=== PATIENT | male | born 1980 | race Caucasian/White ===

== ENCOUNTER 2021-01-21 11:24 | Outpatient (CLI) | payer BC, SELFPAY ==
--- NOTE | ~2021-01-21 | MR_ITS ---
EXAMINATION: MR pituitary wo/w con EXAM DATE: 01/21/2021 12:55 INDICATION: Abn Levels Of Hormones In Specimens From Other Organs. TECHNIQUE: Magnetic resonance imaging (MRI) of the brain/brain stem obtained without contrast. Sagit amairani T1, axial diffusion, gradient echo (T2*), T1, T2, FLAIR sequences obtained. Patient was then inj ected with 14 cc intravenous Multihance contrast. A pituitary protocol was utilized including dynamic imaging through the pituitary gland during intravenous injection of contrast. Axial and coronal pos tcontrast T1 weighted sequences obtained. There are no prior studies for comparison. FINDINGS: The pituitary gland is confined to the sella turcica. Suprasellar region normal in appear ance. The optic chiasm normal. Infundibulum is midline. No definite pituitary microadenoma identif ied. Please note small microadenomas can cause endocrine abnormalities but are not always identified by imaging even using dedicated pituitary protocol. This does exclude macroadenoma or need for surg ical management. There are no areas of restricted diffusion to suggest acute infarction. There is no acute hemorrhage seen on the T2*, a hemosiderin sensitive sequence. No intraparenchymal brain mass. The ventricles a re normal in size. There are no extra-axial collections. Flow voids are seen in the cerebral arteri es on the T2-weighted sequences consistent with their expected patency. The orbits are unremarkable. Soft tissue is unremarkable. There are no areas of abnormal enhancement on the postcontrast image s. IMPRESSION: Unremarkable brain/pituitary examination. Reviewed, dictated and finalized at location A.
[2021-01-21 12:07] LABS: Estimated Glomerular Filt Rate > 60
== END 2021-01-21 11:25 | disposition home or self-care (01) ==
LOC: ANHIMG 11:27
PROVIDERS: PCP Nurse Practitioner Family; Visit Provider Nurse Practitioner Family
DX: R89.1 Abnormal level of hormones in specimens from other organs, systems and tissues (principal)
CPT/HCPCS: 70553; A9577

== ENCOUNTER 2021-06-12 16:14 | Emergency (ER) | payer BC, SELFPAY ==
--- NOTE | ~2021-06-12 | XR_ITS ---
EXAMINATION: XR hand RT min 3V DATE: 06/12/2021 16:31 INDICATION: Right hand hit against a wall. TECHNIQUE: Posteroanterior, oblique and lateral views of the right hand were obtained. COMPARISON: None. 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 There is a nondisplaced subtle linear lucent extra-articular fracture at the proximal metap hyseal region of the third metacarpal. No other fractures identified. Severe osteoarthritis at the fl exed fourth proximal interphalangeal joint with remodeling at the head of the fourth proximal phalanx . IMPRESSION: 1. 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 Correlate with clinical history. 2. Nondisplaced extra articular fracture near the base of the third metacarpal. 3. 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 Reviewed, dictated and finalized at location B. LL MACHINE OPERATOR IMPRESSION: 1. 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 Correlate with clini gera history. 2. Nondisplaced extra articular fracture near the base of the third metacarpal. 3. 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
[2021-06-12 16:22] VITALS: BP 142/98; PULSE 103; RESP 16; TEMP 36.2; O2SAT 100
--- NOTE | 2021-06-12 16:49 | ED.UPPEXIN ---
HPI - Extremity Injury (Upper) General Chief Complaint: Extremity Injury, Upper Stated Complaint: rt hand injury History of Present Illness HPI narrative: This is a 40 year old male that presents to urgent care with pain to the right hand. Patient states that he banged or punched like his hand against a wall like object unintentional but it bumped and he as been having pain and he would like to have it evlauated. He has taken some Ibuprofen with not as much relief as he expected. Related Data Home Medications Medication Instructions Recorded Confirmed dextroamphetamine-amphetamine PO 06/12/21 levothyroxine 06/12/21 omeprazole 06/12/21 sildenafil 06/12/21 Allergies Allergy/AdvReac Type Severity Reaction Status Date / Time No Known Allergies Allergy Verified 10/01/13 08:53 Review of Systems Review of Systems: right hand pain All systems reviewed & are unremarkable except as noted in HPI and below PMFSH Comments At time as signature, I have reviewed and agree with nursing past medical, social, surgical and family history. Please see nursing chart for further information. There is no relevant family history pertinent to the presenting complaint. Exam Narrative: GENERAL:Well-appearing, well-nourished, and in no acute distress. HEAD:Normocephalic EYES: PERRLA and EOMI. CHEST :o respiratory distress. HEART: Regular rate and rhythm. slightly tachy ABDOMEN: Soft, nontender, nondistended, EXTREMITIES: decreased range of motion due to congential deformity third finger missing bone is in hand no fever there is slight edema. SKIN: Warm, dry, no rash. NEURO: No focal deficits. Alert and oriented x3. Course ONCOLOGY PATIENT NAVIGATOR/PA Physician Supervision COMPARISON: None. 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 There is a nondisplaced subtle linear lucent extra-articular fracture at the proximal metaphyseal region of the third metacarpal. No other fractures identified. 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 IMPRESSION: 1. 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 Correlate with clinical history. 2. Nondisplaced extra articular fracture near the base of the third metacarpal. 3. 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 Vital Signs Vital signs: Vital Signs Temperature 97.2 F L 06/12/21 16:22 Pulse Rate 103 H 06/12/21 16:22 Respiratory Rate 16 06/12/21 16:22 Blood Pressure 142/98 H 06/12/21 16:22 Pulse Oximetry 100 06/12/21 16:22 Temperature 97.2 F L 06/12/21 16:22 Pulse Rate 103 H 06/12/21 16:22 Respiratory Rate 16 06/12/21 16:22 Blood Pressure 142/98 H 06/12/21 16:22 Pulse Oximetry 100 06/12/21 16:22 Procedures Other Procedure Procedure 1: Other Procedure: Gutter splint placed on right hand MDM - Extremity Injury (Upper) Differential Diagnosis Differential diagnosis: Likely sprain and strain of wrist, fracture of wrist, finger sprain, dislocation of finger, fracture of hand, dislocation of shoulder and fracture of humerus Discharge Plan Discharge Clinical Impression: Ectodermal defect, congenital Metacarpal bone fracture Qualifiers: Encounter type: initial encounter Metacarpal bone: third Fracture type: closed Metacarpal location: base Fracture alignment: nondisplaced Laterality: right Qualified Code(s): S62.342A - Nondisplaced fracture of base of third metacarpal bone, right hand, initial encounter for closed fracture Patient Disposition: Home, Self-Care Condition: Stable Instructions: Antibiotic Form, Finger Fracture (ED), Hand Fracture (ED), Boxer Fracture (ED) Additional
== END 2021-06-12 17:11 | disposition home or self-care (01) ==
PROVIDERS: Emergency Provider Nurse Practitioner Family; PCP Internal Medicine
DX: S62.342A Nondisplaced fracture of base of third metacarpal bone, right hand, initial encounter for closed fracture (principal); W22.8XXA Striking against or struck by other objects, initial encounter; Q89.8 Other specified congenital malformations; K21.9 Gastro-esophageal reflux disease without esophagitis; E03.9 Hypothyroidism, unspecified
CPT/HCPCS: 29125; 73130; 99213; G0463

== ENCOUNTER 2023-11-25 04:19 | Emergency (ER) | payer BC, SELFPAY ==
[2023-11-25 04:24] VITALS: BP 135/92; PULSE 98; RESP 18; TEMP 36.9; O2SAT 99
[2023-11-25 04:57] LABS: Appearance Urine Clear (Clear); Bacteria Urine None Seen /hpf; Bilirubin Urine Negative (Negative); Blood Urine 3+ (Negative); Color Urine Yellow (Yellow); Glucose Urine UA Negative (Negative); Ketones Urine Negative (Negative); Leukocyte Esterase Ur Negative LEU/UL (Negative); Need Manual Microscopic Reviewed; Nitrate Urine Negative (Negative); Non Pathogenic Casts 0-2; Protein Urine 2+ mg/dL (Negative); RBC Urine >100 /hpf (0-2); Specific Grav Ur 1.021 (1.001-1.035); Squamous Epithelial Cell Urine None Seen /hpf (Few); WBC Urine 21-50 /hpf (0-3); pH Urine 5.5 (5.0-9.0)
[2023-11-25 04:58] LABS: Add Urine Microscopic? YES
--- NOTE | 2023-11-25 05:14 | ED.GENADULT ---
HPI - General Adult General Chief complaint: Urogenital-Male Stated complaint: hematuria Time Seen by Provider: 11/25/23 05:14 History of Present Illness HPI narrative: Patient is a 43-year-old male who presents to the emergency department this morning complaining of hematuria. Patient states that approximately 6 hours ago he noticed that there was blood in his urine. Patient states that this happened to him in the, however the amount of blood was not as much. He admits to mild discomfort with urination but denies any burning or dysuria. He denies any fevers or chills, any flank pain, nausea or vomiting and denies any additional symptoms or concerns at this time. Related Data Home Medications Medication Instructions Recorded Confirmed dextroamphetamine-amphetamine ER PO 06/12/21 20 mg 24hr capsule,extend release levothyroxine 100 mcg tablet 06/12/21 omeprazole 40 mg capsule,delayed 06/12/21 release sildenafil 50 mg tablet 06/12/21 Allergies Allergy/AdvReac Type Severity Reaction Status Date / Time No Known Allergies Allergy Verified 11/25/23 04:29 Review of Systems Review of Systems: All systems are reviewed and are negative unless stated otherwise in the HPI. Exam Narrative: General: Alert, awake, afebrile, in no acute distress. HEENT: PERRL, no rhinorrhea, no post nasal drip, oropharynx clear. Cardiovascular: Regular rate and rhythm, no murmurs, rubs or gallops, no peripheral edema. Respiratory: Clear to auscultation bilaterally, no tachypnea, no wheezing, no rhonchi, no rubs, no respiratory distress. Abdomen: Soft, nontender, nondistended, no rebound, no guarding, no peritoneal signs. Musculoskeletal: No joint swelling or deformity, normal muscle tone. Skin: No rashes or petechia, no signs of infection. Neurological: Alert and oriented to person, place, and time. Follows all commands. No focal deficits, speech is clear and fluent. Course Vital Signs Vital signs: Vital Signs Temperature 98.5 F 11/25/23 04:24 Pulse Rate 98 11/25/23 04:24 Respiratory Rate 18 11/25/23 04:24 Blood Pressure 135/92 H 11/25/23 04:24 Pulse Oximetry 99 11/25/23 04:24 Oxygen Delivery Room Air 05/22/24 04:24 Temperature 98.5 F 11/25/23 04:24 Pulse Rate 98 11/25/23 04:24 Respiratory Rate 18 11/25/23 04:24 Blood Pressure 135/92 H 11/25/23 04:24 Pulse Oximetry 99 11/25/23 04:24 Oxygen Delivery Room Air 11/25/23 04:24 Medical Decision Making MDM Narrative Medical decision making narrative: The patient was evaluated by myself in the emergency department. History is obtained from patient who is an independent historian and physical exam was performed. External medical records were reviewed at this time. Differential diagnosis considerations include urinary tract infection, sexually transmitted disease, rhabdomyolysis and all these differentials were discussed with patient at bedside. Comorbidities impacting this visit include none. I have evaluated and discussed social determinants of health with the patient that could potentially impact subsequent diagnosis and treatment plans. On repeat assessment of the patient, reevaluation revealed that the patient is doing well and is in no acute distress. Patient symptoms have remained stable since he arrived to our emergency department. Repeat vital signs were all reviewed and noted to be stable. Differential diagnosis and treatment plan were discussed with the patient at bedside. Patient agrees with discussion and after shared medical decision making agrees with discharge. All questions were answered to the patient's satisfaction. Patient will follow up with Urology with Dr. Gutierrez in 1 week. Patient was provided with strict return precautions and instructed to return to the emergency department if any new or worsening symptoms develop. A script for cephalexin was sent to his pharmacy and he was instructed to take as p
== END 2023-11-25 05:25 | disposition home or self-care (01) ==
PROVIDERS: Emergency Provider Emergency Medicine; PCP Nurse Practitioner
DX: N39.0 Urinary tract infection, site not specified (principal); R31.9 Hematuria, unspecified
CPT/HCPCS: 81001; 87086; 99283

== ENCOUNTER 2024-02-04 12:33 | Emergency (ER) | payer BC, SELFPAY ==
[2024-02-04 12:35] VITALS: BP 154/94; PULSE 102; RESP 16; TEMP 36.7; O2SAT 100
--- NOTE | 2024-02-04 12:50 | ED.MALEGU ---
HPI - Male Genitourinary General Chief complaint: Urogenital-Male <Alondra Jack PA-C - Last Filed: 02/04/24 12:53> Stated complaint: unable to urinate <Alondra Jack PA-C - Last Filed: 02/04/24 12:53> Time Seen by Provider: 02/04/24 12:54 <KAJAL Mendez Last Filed: 02/04/24 12:53> Focused HPI: 43-year-old male presents to emergency department for urinary retention. States he has urinated multiple times today but has not felt like he has fully empty his bladder. About an hour ago he had some dribbling which concerned him so he came to the ED. states he had a cystoscopy and biopsy for a mass performed [address] Ward. States he has some blood in his urine since. He is unsure biopsy results. Also states he had dysuria this morning. Reports suprapubic abdominal discomfort. Denies fever, nausea vomiting. No history of obstructive uropathy. GENERAL: Well-appearing, well-nourished, and in no acute distress. HEAD: Normocephalic, atraumatic. CHEST: Clear to auscultation. ?No respiratory distress. ABDOMEN: Minimal tenderness to suprapubic region, otherwise abdomen is soft and nontender. No CVA tenderness. HEART: Regular rate and rhythm.? NEURO: ?Alert and oriented x3. Patient screened in triage and initial orders placed.? ?Additional care and disposition to be based upon?diagnostic testing and treatment. <KAJAL Mendez Last Filed: 02/04/24 12:53> Related Data Home medications: Home Medications Medication Instructions Recorded Confirmed dextroamphetamine-amphetamine ER PO 06/12/21 20 mg 24hr capsule,extend release levothyroxine 100 mcg tablet 06/12/21 omeprazole 40 mg capsule,delayed 06/12/21 release sildenafil 50 mg tablet 06/12/21 <KAJAL Mendez Last Filed: 02/04/24 12:53> Allergies/Adverse reactions: Allergies Allergy/AdvReac Type Severity Reaction Status Date / Time No Known Allergies Allergy Verified 11/25/23 04:29 <Alondra Jack PA-C - Last Filed: 02/04/24 12:53> Course Vital Signs Vital signs: Vital Signs Temperature 98.1 F 02/04/24 12:35 Pulse Rate 102 H 02/04/24 12:35 Respiratory Rate 16 02/04/24 12:35 Blood Pressure 154/94 H 02/04/24 12:35 Pulse Oximetry 100 02/04/24 12:35 Oxygen Delivery Room Air 02/04/24 12:35 Temperature 98.1 F 02/04/24 12:35 Pulse Rate 66 02/04/24 13:46 Respiratory Rate 18 02/04/24 13:46 Blood Pressure 135/92 H 02/04/24 13:46 Pulse Oximetry 99 02/04/24 13:46 Oxygen Delivery Room Air 02/04/24 12:35 <Alondra Jack PA-C - Last Filed: 02/04/24 12:53> Vital Signs Temperature 98.1 F 02/04/24 12:35 Pulse Rate 102 H 02/04/24 12:35 Respiratory Rate 16 02/04/24 12:35 Blood Pressure 154/94 H 02/04/24 12:35 Pulse Oximetry 100 02/04/24 12:35 Oxygen Delivery Room Air 02/04/24 12:35 Temperature 98.1 F 02/04/24 12:35 Pulse Rate 66 02/04/24 13:46 Respiratory Rate 18 02/04/24 13:46 Blood Pressure 135/92 H 02/04/24 13:46 Pulse Oximetry 99 02/04/24 13:46 Oxygen Delivery Room Air 02/04/24 12:35 <Vick Starr MD - Last Filed: 02/04/24 14:21> MDM - Male Genitourinary MDM Narrative Medical decision making narrative: -Course: 43-year-old male presenting with urinary retention 3 days after instrumentation. Peña placed with relief of symptoms. Urine with positive nitrites and leuk esterase. No overt signs of infection but given his recent instrumentation to be cover with Bactrim until he sees Urology. Patient discharged. -DDX includes but is not limited to:Urinatry retention. UTI -Independent interpretation of studies: Labs reviewed -Shared decision making / Disposition: discharge -RX Bactrim <Vick Starr MD - Last Filed: 02/04/24 14:21> Lab Data Result diagrams: 02/04/24 13:11 02/04/24 13:11 <Alondra Jack PA-C - Last Filed:
[2024-02-04 13:16] LABS: Basophils Percent Auto 0.2 % (0.2-1.2); Eosinophils Absolute Auto 0.1 K/mm3 (0-0.3); Eosinophils Percent Auto 0.9 % (0-4.4); Hematocrit 44.3 % (42.0-52.0); Hemoglobin 15.4 g/dL (14.0-18.0); Immature Granulocyte Absolute 0.02 K/mm3 (0.00-0.031); Immature Granulocyte Percent A 0.4 % (0-0.5); Lymphocytes Absolute Auto 0.82 K/mm3 (0.9-3.2); Lymphocytes Percent Auto 14.6 % (18.3-44.2); Mean Corpuscular HGB Conc 34.8 g/dl (32-36); Mean Corpuscular Hemoglobin 30.6 pg (26-34); Mean Corpuscular Volume 87.9 fl (80-100); Mean Platelet Volume 10.3 fl (7.4-10.4); Monocytes Absolute Auto 0.1 K/mm3 (0.1-0.6); Monocytes Percent Auto 2.5 % (2.6-8.5); Neutrophils Absolute Auto 4.6 K/mm3 (1.3-6.7); Neutrophils Percent Auto 81.4 % (45.5-73.1); Platelet Count Result 172 k/mm3 (150-375); Red Blood Count 5.04 M/mm3 (4.6-6.20); White Blood Count 5.6 K/mm3 (4.5-10.0)
[2024-02-04 13:25] LABS: Alanine Aminotransferase 122 U/L (6-50); Alkaline Phosphatase 85 U/L (38-126); Anion Gap 10 mmol/L (4-12); Aspartate Amino Transferase 85 U/L (17-59); Bilirubin,Total 1.3 mg/dL (0.2-1.3); Blood Urea Nitrogen 12 mg/dL (9-20); Calcium 10.1 mg/dL (8.4-10.2); Carbon Dioxide 28 mmol/L (22-30); Chloride 99 mmol/L (98-107); Estimated CRCL calculation 108 ml/min; Estimated Glomerular Filt Rate > 60; Glucose 108 mg/dL (65-110); Potassium 3.9 mmol/L (3.4-5.0); Sodium 137 mmol/L (137-145)
[2024-02-04 13:46] VITALS: BP 135/92; PULSE 66; RESP 18; O2SAT 99
[2024-02-04 14:08] LABS: Add Urine Microscopic? YES; Appearance Urine Clear (Clear); Bacteria Urine None Seen /hpf; Bilirubin Urine 1+ (Negative); Blood Urine 2+ (Negative); Color Urine Dark Yellow (Yellow); Glucose Urine UA Negative (Negative); Ketones Urine Negative (Negative); Leukocyte Esterase Ur 1+ LEU/UL (Negative); Need Manual Microscopic Reviewed; Nitrate Urine Positive (Negative); Non Pathogenic Casts 0-2; Protein Urine Trace mg/dL (Negative); RBC Urine 21-50 /hpf (0-2); Specific Grav Ur 1.011 (1.001-1.035); Squamous Epithelial Cell Urine None Seen /hpf (Few); WBC Urine 0-5 /hpf (0-3); pH Urine 6.5 (5.0-9.0)
[2024-02-04 14:43] VITALS: BP 128/88; PULSE 81; RESP 16; O2SAT 97
== END 2024-02-04 14:45 | disposition home or self-care (01) ==
PROVIDERS: Physician Assistant; Emergency Provider Emergency Medicine; PCP Nurse Practitioner
DX: R33.9 Retention of urine, unspecified (principal)
CPT/HCPCS: 36415; 51702; 80053; 81001; 85025; 99283; A9270

== ENCOUNTER 2024-02-04 19:02 | Emergency (ER) | payer BC, SELFPAY ==
[2024-02-04 19:08] VITALS: BP 139/96; PULSE 116; RESP 20; TEMP 36.9; O2SAT 100
--- NOTE | 2024-02-04 19:47 | ED.GENADULT ---
HPI - General Adult General Chief complaint: Urogenital-Male Stated complaint: delgado problems Time Seen by Provider: 02/04/24 19:13 History of Present Illness HPI narrative: This is a 43-year-old male presenting to ED with leakage around his Delgado site. Delgado was placed earlier today for urinary retention. Patient has been having bladder spasms with leakage around Delgado. Patient also notes that he is constipated. Related Data Home Medications Medication Instructions Recorded Confirmed dextroamphetamine-amphetamine ER PO 06/12/21 20 mg 24hr capsule,extend release levothyroxine 100 mcg tablet 06/12/21 omeprazole 40 mg capsule,delayed 06/12/21 release sildenafil 50 mg tablet 06/12/21 Allergies Allergy/AdvReac Type Severity Reaction Status Date / Time No Known Allergies Allergy Verified 11/25/23 04:29 [facility] Past Medical History Medical History Acute urinary retention Exam Narrative: APPEARANCE: No apparent distress. Head: atraumatic. EYES: EOMI, NOSE: Atraumatic NECK: Trachea midline RESPIRATORY: No increased rate of breathing CARDIOVASCULAR: RRR, ABDOMINAL: Non-distended all soft, nontender MUSCULOSKELETAl: No obvious deformities NEURO: Alert. Moving 4/4 extremities SKIN:: Warm, dry. Normal color PSYCHIATRIC: Normal affect Course Vital Signs Vital signs: Vital Signs Temperature 98.5 F 02/04/24 19:08 Pulse Rate 116 H 02/04/24 19:08 Respiratory Rate 20 02/04/24 19:08 Blood Pressure 139/96 H 02/04/24 19:08 Pulse Oximetry 100 02/04/24 19:08 Temperature 98.5 F 02/04/24 19:08 Pulse Rate 116 H 02/04/24 19:08 Respiratory Rate 20 02/04/24 19:08 Blood Pressure 139/96 H 02/04/24 19:08 Pulse Oximetry 100 02/04/24 19:08 Medical Decision Making [facility] Narrative Medical decision making narrative: -Course: 43-year-old male presenting leakage around his Delgado. Delgado was upgraded. I suspect a bladder spasm as the cause of his symptoms. Patient given pain control. Given stool softeners as he reports constipation. Strict follow-up with urology. -DDX includes but is not limited to: bladder spasm, incorrect delgado size, constipation -Co-morbidities complicating care: recent cystoscopy -Interventions: Troy 5 mg x 2 -Shared decision making / Disposition: discharge -RX docusate, senna Vital Signs Vital Signs: Vital Signs Temperature 98.5 F 02/04/24 19:08 Pulse Rate 116 H 02/04/24 19:08 Respiratory Rate 20 02/04/24 19:08 Blood Pressure 139/96 H 02/04/24 19:08 Pulse Oximetry 100 02/04/24 19:08 Temperature 98.5 F 02/04/24 19:08 Pulse Rate 116 H 02/04/24 19:08 Respiratory Rate 20 02/04/24 19:08 Blood Pressure 139/96 H 02/04/24 19:08 Pulse Oximetry 100 02/04/24 19:08 Discharge Plan Discharge Clinical Impression: Complication of Delgado catheter, Bladder spasm Patient Disposition: Home, Self-Care Condition: Stable Instructions: Antibiotic Form, Delgado Catheter Placement and Care (ED) Additional Instructions: Use Motrin Tylenol for pain. He has oxycodone for breakthrough pain. Please continue taking your stool softeners. Please follow-up with urology on Thursday. Return if you develop severe pain or inability to urinate. Prescriptions: New oxycodone 5 mg tablet 5 mg PO Q4H PRN (Reason: pain) Qty: 7 0RF acetaminophen 500 mg tablet 1,000 mg PO TID PRN (Reason: aaron) 7 Days Qty: 42 0RF ibuprofen 800 mg tablet 800 mg PO TID PRN (Reason: pain) 7 Days Qty: 21 0RF No Action sildenafil 50 mg tablet omeprazole 40 mg capsule,delayed release(DR/EC) levothyroxine 100 mcg tablet dextroamphetamine-amphetamine 20 mg capsule,extended release 24hr PO sulfamethoxazole-trimethoprim [Bactrim DS] 800-160 mg tablet 1 tablet PO Q12H Qty: 14 0RF cephalexin 500 mg capsule 500 mg PO Q6H 7 Days
[2024-02-04] MEDS: HYDROcodone/acetaminophen (*CRX) 5-325 MG TABLET 2 TAB PO (20:05)
[2024-02-04] MEDS: LIDOCAINE HCL 2% GEL UROJET 10 ML PKG (20:06)
[2024-02-04 21:29] VITALS: BP 107/51; PULSE 89; TEMP 36.2; O2SAT 98
[2024-02-04 22:07] VITALS: BP 123/65; PULSE 76; RESP 18; O2SAT 98
== END 2024-02-04 22:08 | disposition home or self-care (01) ==
PROVIDERS: Emergency Provider Emergency Medicine; PCP Nurse Practitioner
DX: T83.031A Leakage of indwelling urethral catheter, initial encounter (principal); N32.89 Other specified disorders of bladder
CPT/HCPCS: 51702; 99283; A9270

== ENCOUNTER 2024-02-05 06:40 | Emergency (ER) | payer BC, SELFPAY ==
[2024-02-05 06:43] VITALS: BP 125/79; PULSE 124; RESP 20; TEMP 36.8; O2SAT 99
[2024-02-05 07:42] VITALS: BP 126/86; PULSE 96; RESP 15; O2SAT 99
[2024-02-05 09:15] VITALS: BP 105/73; PULSE 77; RESP 15; O2SAT 96
--- NOTE | 2024-02-05 09:17 | ED.MALEGU ---
HPI - Male Genitourinary General Chief complaint: Urogenital-Male Stated complaint: delgado problems Time Seen by Provider: 02/05/24 08:19 History of Present Illness HPI Narrative: Patient is a 43-year-old male who presents ER with issues with his Delgado catheter. Third visit in 24 hours. Had a bladder mass resection. And then had subsequent urinary retention. His Delgado then clogged up any had returned to have the catheter exchange. He noticed it was not going this morning and so he returned. No lower abdominal pain. He seems to be draining at this time. No fevers or chills or sweats. He is on azo which is discoloring his urine. Related Data Home Medications Medication Instructions Recorded Confirmed dextroamphetamine-amphetamine ER PO 06/12/21 20 mg 24hr capsule,extend release levothyroxine 100 mcg tablet 06/12/21 omeprazole 40 mg capsule,delayed 06/12/21 release sildenafil 50 mg tablet 06/12/21 Allergies Allergy/AdvReac Type Severity Reaction Status Date / Time No Known Allergies Allergy Verified 02/05/24 07:39 Review of Systems Constitutional: Constitutional: Reports no additional constitutional complaints Gastrointestinal: Gastrointestinal: Reports no additional gastrointestinal complaints Genitourinary: Genitourinary: Reports no additional male genitourinary complaints [facility] Past Medical History Medical History (Updated 02/05/24 @ 09:43 by Chase Wills MD) Acute urinary retention Surgical History Surgical History (Updated 02/05/24 @ 09:20 by Chase Wills MD) S/P bladder tumor excision with fulguration Exam Narrative: GENERAL: Well-appearing, well-nourished, and in no acute distress. HEAD: Normocephalic, atraumatic. ENT: Mucous membranes moist. CHEST: Clear to auscultation. No respiratory distress. HEART: Regular rate and rhythm. Normal peripheral pulses. ABDOMEN: Soft, nontender, nondistended. Normal appearing penis with Delgado coming out. Abell urine in the Delgado bag. EXTREMITIES: Normal range of motion. No edema. SKIN: Warm, dry, no rash. NEURO: Alert and oriented x3. PSYCH: Normal mood and affect. Course Vital Signs Vital signs: Vital Signs Temperature 98.2 F 02/05/24 06:43 Pulse Rate 124 H 02/05/24 06:43 Respiratory Rate 20 02/05/24 06:43 Blood Pressure 125/79 02/05/24 06:43 Pulse Oximetry 99 02/05/24 06:43 Oxygen Delivery Room Air 02/05/24 06:43 Temperature 98.2 F 02/05/24 06:43 Pulse Rate 96 02/05/24 07:42 Respiratory Rate 15 02/05/24 07:42 Blood Pressure 126/86 02/05/24 07:42 Pulse Oximetry 99 02/05/24 07:42 Oxygen Delivery Room Air 02/05/24 06:43 MDM - Male Genitourinary MDM Narrative Medical decision making narrative: -Course: No major issues -Hx from independent Sources: Patient -Independent interpretation of studies: None -Interventions: Delgado irrigated and the wound deflated and inflated. Fully working properly. -Shared decision making / Disposition: Discharged and follow-up with urology. Discharge Plan Discharge Clinical Impression: Delgado catheter problem Patient Disposition: Home, Self-Care Condition: Stable Instructions: Antibiotic Form, Delgado Catheter Placement and Care (ED) Additional Instructions: Follow-up with your urologist for further evaluation. Your catheter is functioning properly in the ER and there is no urinary retention. Prescriptions: No Action sildenafil 50 mg tablet omeprazole 40 mg capsule,delayed release(DR/EC) levothyroxine 100 mcg tablet dextroamphetamine-amphetamine 20 mg capsule,extended release 24hr PO sulfamethoxazole-trimethoprim [Bactrim DS] 800-160 mg tablet 1 tablet PO Q12H Qty: 14 0RF cephalexin 500 mg capsule 500 mg PO Q6H 7 Days Qty: 28 0RF oxycodone 5 mg tablet 5 mg PO Q4H PRN (Reason: pain) Qty: 7 0RF acetaminophen 500 mg tablet 1,000 mg PO TID PRN
== END 2024-02-05 09:58 | disposition home or self-care (01) ==
PROVIDERS: Emergency Provider Emergency Medicine; PCP Nurse Practitioner
DX: Z43.6 Encounter for attention to other artificial openings of urinary tract (principal)
CPT/HCPCS: 99282

== ENCOUNTER 2024-04-26 07:43 | Outpatient (CLI) | payer BC, SELFPAY ==
[2024-05-23 18:40] VITALS: BMI 24.3
--- NOTE | 2024-05-23 18:40 | P.SLEEP_ITS ---
Sleep Study - Home Unattended Date of Study: 04/26/24 Ordering Provider: Moni Goel, BUSINESS INFO CONSULTANT Interpreting Provider: Yumiko Mcgrath, DO Home Sleep Study Type: Watch PAT Height: 1.78 m Weight: 77.111 kg Body Mass Index: 24.3 Neck Circumference (inches): 13 [place]: 9 Reason for Sleep Study Snoring, difficulty falling and staying asleep Sleep History The patient is a 43-year-old male that had a sleep study ordered by his primary care for evaluation of sleep apnea. The patient admits to snoring loudly. He admits to having trouble falling asleep and maintaining sleep. He does admit to having interruptions in his breathing while asleep. He denies choking or gasping during the night. He does admit to having trouble breathing on his back. He denies waking up in the morning with a headache. He admits to having a dry or sore mouth/ throat in the morning. He admits to nocturnal heartburn. He admits to nocturia. He denies having difficulty returning to sleep if he wakes up during the night. He denies taking any hypnotics or sedatives. He denies feeling anxious about sleep. He does admit to feeling tired or fatigued during the day. He feels tired or unrefreshed in the morning. He denies having the urge to fall asleep during the day. He does feel drowsy while driving. He denies sleep paralysis, cataplexy and hypnagogic / hypnopompic hallucinations. He does admit to clenching or grinding his teeth. He denies having a restless feeling in his legs. He denies kicking or jerking his legs excessively at night. He goes to bed at 11:00 p.m. on both weekdays and weekends. It takes him 1 hour to fall asleep. He typically gets 6 hours of sleep on weekdays and 8 hours of sleep on the weekends. His sleep is somewhat restorative on his days off. He denies taking any plan naps. He denies sleepwalking as a child or as an adult. He denies dream enactment behavior. He consumes 1-2 caffeinated beverages per day. He denies tobacco and alcohol use. He exercises 1-2 nights per week. [facility] Past Medical History Medical History Acute urinary retention Surgical History Surgical History S/P bladder tumor excision with fulguration Medications Home Medications Medication Instructions Recorded Confirmed Type dextroamphetamine-amphetamine ER PO 06/12/21 History 20 mg 24hr capsule,extend release levothyroxine 100 mcg tablet 06/12/21 History omeprazole 40 mg capsule,delayed 06/12/21 History release sildenafil 50 mg tablet 06/12/21 History cephalexin 500 mg capsule 500 mg PO Q6H 7 days #28 caps 11/25/23 Rx acetaminophen 500 mg tablet 1,000 mg PO TID PRN aaron 7 days #42 02/04/24 Rx tabs acetaminophen 500 mg tablet 1,000 mg PO TID PRN aaron 7 days #42 02/04/24 Rx tabs dicyclomine 20 mg tablet 20 mg PO BID #30 tabs 02/04/24 Rx ibuprofen 800 mg tablet 800 mg PO TID PRN pain 7 days #21 02/04/24 Rx tabs ibuprofen 800 mg tablet 800 mg PO TID PRN pain 7 days #21 02/04/24 Rx tabs ibuprofen 800 mg tablet 800 mg PO TID PRN pain 7 days #21 02/04/24 Rx tabs oxycodone 5 mg tablet 5 mg PO Q4H PRN pain #14 tabs 02/04/24 Rx oxycodone 5 mg tablet 5 mg PO Q4H PRN pain #6 tabs 02/04/24 Rx oxycodone 5 mg tablet 5 mg PO Q4H PRN pain #7 tabs 02/04/24 Rx sulfamethoxazole 800 1 tablet PO Q12H #14 tabs 02/04/24 Rx mg-trimethoprim 160 mg tablet (Bactrim DS) Sleep Procedure The sleep study was completed using WatchPAT a technically adequate device with seven channels: peripheral arterial tone, actigraphy, body position, snore, respiratory movement, pulse oximetry, sleep staging, and heart rate. Prior to using the device, the patient received verbal and written instructions for its application and was provided with the help desk phone number for additional telephonic instruction with 24-hour availability of qualified personnel to answer questions. The study was scored using [facility] guidelines. Sleep Architecture The total recording time is 7 hrs, 56 min. The total sleep time is 6 hrs, 3 min. Sleep latency is 28 minutes. REM latency is 43 minutes. The patient had 12 episodes of waking. Sleep architecture shows 21.3% deep sleep, 61.5% light sleep, and (as % Total Sleep Time) showed NREM (Light 61.5%; Deep 21.3%), and a 17.2% stage REM. The patient spent 20.8% of total sleep time in the supine position. Sleep efficiency was 76.26. Respiratory Analysis The overall AHI (pAHI 4%:) is 2.3. The central AHI is 0.8. The AHI was 1.2 in NREM and 7.8 in REM sleep. The AHI was 7.2 in Supine and 1.0 in Non-supine sleep. Percent of Edvin Cohn respirations is 0.0. Oximetry Data The oxygen desaturation index (LAKIA 4%:) is 2.0. The mean saturation is 94%, and the lowest saturation is 90%. Time spent with saturation < 88% is 0.0 minutes. Snoring Profile Snoring average intensity is 40 dB. The patient snored above 45 decibels for 8.4 minutes, 2.3% of sleep time. Cardiac Profile The average pulse rate is 79 beats per minutes. The lowest pulse rate is 56 bpm. The highest pulse rate reported is 105 bpm. Atrial fibrillation was not detected. Premature beats occur <0.1 per minute. Assessment and Plan Assessment and Plan (1) Snoring: Code(s): R06.83 - Snoring Status: Acute Assessment and Plan: The patient had an overall AHI of 2.3 with desaturation down to 90%. This is not consistent with sleep-disordered breathing. If there is further concern for a sl eep disorder, I recommend that the patient have a split study with the use of a hypnotic (Lunesta 2-3 mg or Ambien 5-10 mg) to ensure we obtain enough sleep data. Data The data obtained during this sleep study is adequate for interpretation. Certification This sleep study has been reviewed by a board certified sleep medicine physician.
== END 2024-04-28 14:19 | disposition home or self-care (01) ==
PROVIDERS: PCP Nurse Practitioner; Visit Provider Nurse Practitioner
DX: F51.01 Primary insomnia (principal); R06.83 Snoring
CPT/HCPCS: 95800